=== PATIENT | male | born 1965 | race African-American/Black ===

== ENCOUNTER → 2017-08-02 | Outpatient (CLI) | payer OTHER ==
--- NOTE | 2017-08-02 08:52 | RADIOLOGY REPORT (SQ) ---
EXAM DESCRIPTION: U/S ABDOMEN LIMITED W/O DOP COMPLETED DATE/TIME: 08/02/2017 8:20 am REASON FOR STUDY: FATTY LIVER (K76.0) K76.0 FATTY (CHANGE OF) LIVER, NOT ELSEWHERE CLASSIFIED COMPARISON: 2015. TECHNIQUE: Dynamic and static grayscale images acquired of the liver and recorded on PACS. Additiona l selected color Doppler and spectral images recorded. Selected velocities recorded. LIMITATIONS: None. FINDINGS: LIVER: Top normal size at 18.3 cm. Echogenic, fatty parenchyma diffusely. No focal mass detected. LIVER VASCULATURE: Normal directional flow of the main portal vein and hepatic veins. The IVC is pat ent. GALLBLADDER: No stones. Normal wall thickness. No pericholecystic fluid. ULTRASOUND-DETECTED SINGH'S SIGN: Negative. INTRAHEPATIC DUCTS AND COMMON DUCT: No dilated intrahepatic ducts. CBD diameter normal. ASCITES: None. OTHER: No other significant finding. IMPRESSION: Fatty liver. No liver mass. No ascites appreciated. TECHNICAL DOCUMENTATION: JOB ID: [id number] [employer]- All Rights Reserved Reading location - IP/workstation name: [email or web address]
== END ==
LOC: RAD 07:36
PROVIDERS: ATTEND Family Medicine
DX: K76.0 Fatty (change of) liver, not elsewhere classified (principal)
CPT/HCPCS: 76705

== ENCOUNTER → 2020-02-19 | Outpatient (CLI) | payer OTHER ==
--- NOTE | 2020-02-20 13:11 | RADIOLOGY REPORT (SQ) ---
EXAM DESCRIPTION: CT SOFT TISSUE NECK WITH IMAGES COMPLETED DATE/TIME: 02/19/2020 10:17 am REASON FOR STUDY: R59.0 LOCALIZED ENLARGED LYMPH NODES R59.0 LOCALIZED ENLARGED LYMPH NODES COMPARISON: None. TECHNIQUE: Post IV contrasted scanning from skull base through lung apices with review of bone, soft tissue and lung windows. Reconstructed coronal and sagittal MPR images reviewed. All images stored on PACS. All CT scanners at this facility use dose modulation, iterative reconstruction, and/or weight based d osing when appropriate to reduce radiation dose to as low as reasonably achievable (ALARA). [facility]: Dose Right [facility]: CareDose [facility]: Dose Right [facility]: Teradose 4D [facility]: [employer]ines CONTRAST TYPE AND DOSE: contrast/concentration: Isovue 350.00 mmol/ml; Total Contrast Delivered: 75. 0 ml; Total Saline Delivered: 40.0 ml RENAL FUNCTION: Creatinine 0.9 RADIATION DOSE: . LIMITATIONS: None. FINDINGS: SKULL BASE: Intact. MAJOR SALIVARY GLANDS: The parotid glands are somewhat prominent but are homogeneous. Submandibular glands are unremarkable. LYMPHADENOPATHY: There is submandibular adenopathy on the right. There is a 22 mm lymph node with a somewhat hypodense center. A couple smaller adjacent nodes are seen. MUCOSAL MASSES OR ASYMMETRY: Cannot exclude soft tissue density in the right valleculum. LARYNX/CORDS: No abnormal findings. VASCULAR STRUCTURES: The major vessels are patent. LUNG APICES: Clear. BONES: Mild cervical degenerative disc disease and spondylosis. THYROID: Normal size. No masses. PARANASAL SINUSES: Clear. OTHER: No other significant finding. IMPRESSION: 1. Submandibular adenopathy on the right as described. The large node with a hypodense center could be inflammatory or neoplastic. 2. Cannot exclude soft tissue density in the right valleculum. Recommend direct visualization. 3. The parotid glands are prominent but homogeneous. TECHNICAL DOCUMENTATION: JOB ID: [id number] Quality ID # [id number]: Final reports with documentation of one or more dose reduction techniques (e.g., Au tomated exposure control, adjustment of the mA and/or kV according to patient size, use of iterative reconstruction technique) 2010 [employer]- All Rights Reserved Reading location - IP/workstation name: [email or web address]
== END ==
LOC: RAD 09:53
PROVIDERS: ATTEND Family Medicine
DX: R59.0 Localized enlarged lymph nodes (principal)
CPT/HCPCS: 70491; 82565